=== PATIENT | female | born 1945 | race Caucasian/White ===

== ENCOUNTER 2017-04-26 07:14 | Emergency (ER) | payer OTHER ==
[~2017-04-26] VITALS: Ht 165.1 cm; Wt 98.1 kg
[~2017-04-26 07:14] MED LIST: ADVAIR 250/501 DISK IH; AMLODIPINE BESYL5 MG PO; AMOX TR-K CLV1 EAC3 PO; ANTIFUNGAL15 G1 TP; AZTREONAM1 GM IM; BACTRIM,SEPT1 TABLET PO; BACTRIM,SEPTRA20 ML PO; BUDEPRION XL300 MG PO; BUPROPION XL300 MG PO; BUSPAR15 MG PO; BUSPIRONE HCL15 MG PO; Buspar PO; CARDIZEM CD180 MG PO; CAYSTON75 MG/1 ML IH; CLONAZEPAM0.5 MG PO; CLONAZEPAM2 MG PO; COMBIVENT200 INHALA IH; CYANOCOBALAM1000 MCG PO; DIFLUCAN200 MG PO; DILTIAZEM 24HR180 MG PO; DUONEB 2.5-0.5 M3 ML AEROSOL; DUONEB 2.5-0.5 M3 ML IH; FLONASE16 G1 BOTH NARES; HYDROCHLOROTH12.5 M3 PO; HYPER-SAL4 M1 IH; HYPERSAL; HYZAAR 50-121 TABLET PO; Hyzaar 50-12.5 PO; INSULIN PUMP SCCONT; KlonoPIN PO; LEVOFLOXACIN750 MG PO; LISINOPRIL-HCT1 EAC3 PO; LISINOPRIL-HCT1 EACH PO; LISINOPRIL30 MG PO; LYRICA75 MG PO; MIRALAX17 GM PO; MIRALAX255 GM PO; MONTELUKAST SOD10 MG PO; NOVOLOG; NOVOLOG 10100 UNITS/ SC; NOVOLOG PE100 UNITS/ SC; OMEPRAZOLE40 M1 PO; PAROXETINE HCL40 MG; PAXIL40 MG PO; PREDNISONE10 MG PO; PREDNISONE5 M2 PO; PREDNISONE5 MG PO; PREVACID30 MG PO; PROBIOTIC1 EAC1 PO; PULMOZYME2.5 MG/2.5 IH; Paxil PO; PriLOSEC PO; ROBITUSSIN AC,T10 ML PO; SALINE IH; SINGULAIR10 MG PO; SODIUM CHLORIDE4 ML IH; STOOL SOFTENER100 M1 PO; Singulair PO; TESSALON PERLE100 MG PO; VANCOMYCIN HCL1 GM IV; VEST; VITAMIN D31000 UNI2 PO; ZOFRAN8 MG PO; [UNRECOGNIZED DRUG - REMARK] BOTH NARES; predniSONE PO
[2017-04-26] MEDS ORDERED: NAPROXEN500 MG PO (11:49)
[2017-04-26 12:02] VITALS: BP 140/74
== END 2017-04-26 12:03 | disposition home or self-care (01) ==
LOC: EME 07:14
DX: S70.02XA Contusion of left hip, initial encounter (principal); S80.02XA Contusion of left knee, initial encounter; S80.212A Abrasion, left knee, initial encounter; W01.0XXA Fall on same level from slipping, tripping and stumbling without subsequent striking against object, initial encounter; I10 Essential (primary) hypertension; J44.9 Chronic obstructive pulmonary disease, unspecified; J45.909 Unspecified asthma, uncomplicated; E11.9 Type 2 diabetes mellitus without complications; Z79.4 Long term (current) use of insulin
CPT/HCPCS: 73502; 73564; 99281; 99284; J1885

== ENCOUNTER → 2017-08-07 | Outpatient (CLI) | payer OTHER ==
[~2017-08-07] MED LIST changes: +MELATONIN5 M1 PO; +NAPROXEN500 MG PO
== END | disposition home or self-care (01) ==
LOC: AMB 13:30
PROC: 02PYX3Z Removal of Infusion Device from Great Vessel, External Approach (ICD-10-PCS; principal; 2017-08-07)
DX: Z45.2 Encounter for adjustment and management of vascular access device (principal); I87.8 Other specified disorders of veins
CPT/HCPCS: 99212

== ENCOUNTER 2018-01-21 19:25 | Inpatient (IN) | payer OTHER ==
[~2018-01-21] VITALS: Ht 165.1 cm; Wt 100.0 kg
[~2018-01-21 19:25] MED LIST changes: +MELATONIN1 MG PO; -MELATONIN5 M1 PO
[2018-01-21 19:55] LABS: HEMATOCRIT 34.9 % (36.0-46.0); HEMOGLOBIN 11.1 G/DL (11.9-15.5); MCH 25.8 PG (29.0-34.0); MCHC 31.8 G/DL (30.0-36.0); MCV 81.2 FL (83-99); PLATELET COUNT 181 K/uL (156-360); RBC DIS.WIDTH-CV 14.8 % (11.8-14.6); RBC DIS.WIDTH-SD 43.8 % (39-53); WHITE BLOOD COUNT 9.3 K/uL (4.1-10.2)
[2018-01-21 20:11] LABS: ALBUMIN 3.5 g/dL (3.2-4.8)
[2018-01-21 20:12] LABS: CHLORIDE 107 mEq/L (99-109); POTASSIUM 3.9 mEq/L (3.7-5.4); SODIUM 143 mEq/L (136-147)
[2018-01-21 20:14] LABS: GLUCOSE 96 mg/dL (70-99); TOTAL PROTEIN 6.2 g/dL (6.4-8.3)
[2018-01-21 20:16] LABS: TOTAL BILIRUBIN 0.2 mg/dL (0.0-1.0)
[2018-01-21 20:17] LABS: ALKALINE PHOSPHATASE 87 IU/L (3-129)
[2018-01-21 20:18] LABS: CREATININE 1.5 mg/dL (0.6-1.3); GFR ESTIMATE (CALCULATED) 36 mL/min/
[2018-01-21 20:19] LABS: AST (GOT) 12 IU/L (2-34); UREA NITROGEN (BUN) 32 mg/dL (9-23)
[2018-01-21 20:20] LABS: ALT (GPT) 17 IU/L (3-49)
[2018-01-21 20:54] LABS: DIRECT BILIRUBIN 0.1 mg/dL (0.0-0.3); LIPASE 48 U/L (1.0-51.0)
[2018-01-21 21:36] LABS: APPEARANCE CLEAR ((CLEAR)); BILIRUBIN NEGATIVE; BLOOD NEGATIVE; COLOR YELLOW ((YELLOW)); GLUCOSE (STRIP) NEGATIVE; KETONES NEGATIVE; LEUKOCYTES NEGATIVE; NITRITE NEGATIVE; PROTEIN (STRIP) NEGATIVE; SPECIFIC GRAVITY 1.015 (1.000-1.030); UCUL ADDED? NO; UROBILINOGEN 0.2 MG/DL (0.2-1.0)
[2018-01-21 21:40] LABS: TROP-I INTERPRETATION NEGATIVE; TROPONIN-I 0.02 ng/mL (0.0-0.30)
[2018-01-22] MEDS ORDERED: PREDNISONE10 MG PO (01:50)
[2018-01-22] MEDS ORDERED: CYANOCOBALAM1000 MCG PO (01:55)
[2018-01-22] MEDS ORDERED: SODIUM CHLORIDE4 ML IH (01:57)
[2018-01-22] MEDS ORDERED: MONTELUKAST SOD10 MG PO (01:58)
[2018-01-22] MEDS ORDERED: CAYSTON75 MG/1 ML IH (01:59)
[2018-01-22] MEDS ORDERED: HYDROCHLOROTH12.5 M3 PO (02:00)
[2018-01-22] MEDS ORDERED: BUSPAR15 MG PO (02:00)
[2018-01-22] MEDS ORDERED: COMBIVENT RESPIM4 GM IH (02:02)
[2018-01-22] MEDS ORDERED: MYCOSTATIN 100,60 ML PO (02:03)
[2018-01-22 04:16] VITALS: BP 131/79
[2018-01-22 06:08] LABS: TROP-I INTERPRETATION NEGATIVE; TROPONIN-I 0.01 ng/mL (0.0-0.30)
[2018-01-22 08:24] VITALS: BP 146/67
[2018-01-22 11:38] VITALS: BP 141/61
[2018-01-22 13:07] LABS: TROP-I INTERPRETATION NEGATIVE; TROPONIN-I 0.02 ng/mL (0.0-0.30)
[2018-01-22 15:23] VITALS: BP 168/80
[2018-01-22 21:00] VITALS: BP 180/81
[2018-01-22 23:26] VITALS: BP 163/74
[2018-01-23 03:49] VITALS: BP 145/65
[2018-01-23 05:37] LABS: BASOPHIL (%) 0.5 % (0-1); EOSINOPHIL (%) 2.3 % (0-5); EOSINOPHIL COUNT 0.2 K/uL (0-0.3); HEMATOCRIT 33.7 % (36.0-46.0); HEMOGLOBIN 10.1 G/DL (11.9-15.5); IMMATURE GRANULOCYTE (%) 0.7 % (0.0-0.7); LYMPHOCYTE (%) 26.5 % (15-42); MCH 24.9 PG (29.0-34.0); MONOCYTE (%) 9.5 % (3-12); MONOCYTE COUNT 0.7 K/uL (0-0.8); NEUTROPHIL (%) 60.5 % (45-76); NEUTROPHIL COUNT 4.6 K/uL (1.8-6.4); PLATELET COUNT 167 K/uL (156-360); RBC DIS.WIDTH-CV 14.8 % (11.8-14.6); RBC DIS.WIDTH-SD 44.8 % (39-53); RED BLOOD COUNT 4.06 M/uL (3.80-5.20); WHITE BLOOD COUNT 7.6 K/uL (4.1-10.2)
[2018-01-23 06:01] LABS: ALBUMIN 3.3 G/DL (3.2-4.8); ALKALINE PHOSPHATASE 61 IU/L (3-129); ALT (GPT) 15 IU/L (3-49); AST (GOT) 15 IU/L (2-34); CHLORIDE 103 MEQ/L (99-109); CREATININE 1.5 MG/DL (0.6-1.3); GFR ESTIMATE (CALCULATED) 36 mL/min/; GLUCOSE 97 mg/dL (70-99); POTASSIUM 3.6 MEQ/L (3.7-5.4); SODIUM 138 MEQ/L (136-147); TOTAL BILIRUBIN 0.3 MG/DL (0.0-1.0); TOTAL PROTEIN 5.4 G/DL (6.4-8.3); UREA NITROGEN (BUN) 27 mg/dL (9-23)
[2018-01-23 07:05] VITALS: BP 140/64
[2018-01-23 10:50] VITALS: BP 126/60
[2018-01-23 21:00] VITALS: BP 137/66
[2018-01-24 00:04] VITALS: BP 131/60
[2018-01-24 05:04] VITALS: BP 147/65
[2018-01-24 07:33] VITALS: BP 143/67
[2018-01-24 10:47] VITALS: BP 143/66
[2018-01-24 15:55] VITALS: BP 147/70
[2018-01-24 19:00] VITALS: BP 128/70
[2018-01-25 00:04] VITALS: BP 130/59
[2018-01-25 03:53] VITALS: BP 174/74
[2018-01-25 04:02] VITALS: BP 155/70
[2018-01-25 10:10] VITALS: BP 119/58
[2018-01-25 11:22] VITALS: BP 141/64
[2018-01-25 15:24] VITALS: BP 127/60
== END 2018-01-25 16:45 | disposition home or self-care (01) | DRG 191 ==
LOC: EME → EDBD 19:25 → EME 19:25 → EDOF 01-22 02:09 → 5WEST 01-22 02:09 → ENRESERV 01-22 02:10 → 5WEST 01-22 04:07 → ENPENDDIS 01-25 → 5WEST 01-25 16:45
PROVIDERS: Hospitalist; Internal Medicine
DX: J47.9 Bronchiectasis, uncomplicated (principal); E84.9 Cystic fibrosis, unspecified; K59.00 Constipation, unspecified; J98.11 Atelectasis; E10.22 Type 1 diabetes mellitus with diabetic chronic kidney disease; T17.990A Other foreign object in respiratory tract, part unspecified in causing asphyxiation, initial encounter; K86.1 Other chronic pancreatitis; I12.9 Hypertensive chronic kidney disease with stage 1 through stage 4 chronic kidney disease, or unspecified chronic kidney disease; K56.7 Ileus, unspecified; F32.9 Major depressive disorder, single episode, unspecified; Z68.36 Body mass index [BMI] 36.0-36.9, adult; K21.9 Gastro-esophageal reflux disease without esophagitis; E78.5 Hyperlipidemia, unspecified; I70.0 Atherosclerosis of aorta; I25.10 Atherosclerotic heart disease of native coronary artery without angina pectoris; G47.33 Obstructive sleep apnea (adult) (pediatric); N18.3 Chronic kidney disease, stage 3 (moderate); F41.9 Anxiety disorder, unspecified; E66.9 Obesity, unspecified; Z96.41 Presence of insulin pump (external) (internal); Z93.3 Colostomy status; Z79.4 Long term (current) use of insulin; Z90.710 Acquired absence of both cervix and uterus; Z79.899 Other long term (current) drug therapy
CPT/HCPCS: 71275; 74018; 74177; 80048; 80053; 81003; 82248; 82948; 83605; 83690; 84484; 85025; 85027; 93005; 94640 76; 94668; 94760; 94799; 99202; 99281; 99285; G0378; J1644; J2405; J3010; J7030; J7512; J7639; S0028

== ENCOUNTER 2018-01-31 17:23 | Emergency (ER) | payer OTHER ==
[~2018-01-31] VITALS: Ht 165.1 cm; Wt 95.9 kg
[~2018-01-31 17:23] MED LIST changes: +COMBIVENT RESPIM4 GM IH; +MYCOSTATIN 100,60 ML PO
[2018-01-31 19:31] LABS: HEMATOCRIT 35.2 % (36.0-46.0); HEMOGLOBIN 11.1 G/DL (11.9-15.5); MCH 25.8 PG (29.0-34.0); MCHC 31.5 G/DL (30.0-36.0); MCV 81.9 FL (83-99); PLATELET COUNT 170 K/uL (156-360); RBC DIS.WIDTH-CV 14.8 % (11.8-14.6); RBC DIS.WIDTH-SD 44.2 % (39-53); WHITE BLOOD COUNT 11.2 K/uL (4.1-10.2)
[2018-01-31 19:39] LABS: ALBUMIN 3.5 g/dL (3.2-4.8)
[2018-01-31 19:40] LABS: CHLORIDE 107 mEq/L (99-109); POTASSIUM 4.3 mEq/L (3.7-5.4); SODIUM 143 mEq/L (136-147)
[2018-01-31 19:42] LABS: GLUCOSE 168 mg/dL (70-99); TOTAL PROTEIN 6.5 g/dL (6.4-8.3)
[2018-01-31 19:44] LABS: TOTAL BILIRUBIN 0.3 mg/dL (0.0-1.0)
[2018-01-31 19:45] LABS: ALKALINE PHOSPHATASE 87 IU/L (3-129)
[2018-01-31 19:46] LABS: CREATININE 1.6 mg/dL (0.6-1.3); GFR ESTIMATE (CALCULATED) 34 mL/min/
[2018-01-31 19:47] LABS: AST (GOT) 22 IU/L (2-34); UREA NITROGEN (BUN) 28 mg/dL (9-23)
[2018-01-31 19:49] LABS: ALT (GPT) 19 IU/L (3-49); LIPASE 38 U/L (1.0-51.0)
[2018-01-31] MEDS ORDERED: LEVAQUIN500 MG PO (20:37)
[2018-01-31] MEDS ORDERED: ULTRACET1 TABLET PO (20:37)
[2018-01-31] MEDS ORDERED: ZOFRAN ODT4 MG PO (20:48)
[2018-01-31 21:18] VITALS: BP 151/79
== END 2018-01-31 21:20 | disposition home or self-care (01) ==
LOC: EME 17:23
PROVIDERS: Physician Assistant
DX: J18.9 Pneumonia, unspecified organism (principal); J44.0 Chronic obstructive pulmonary disease with (acute) lower respiratory infection; E11.9 Type 2 diabetes mellitus without complications; Z79.4 Long term (current) use of insulin; Z96.41 Presence of insulin pump (external) (internal); E78.5 Hyperlipidemia, unspecified; E84.9 Cystic fibrosis, unspecified; F32.9 Major depressive disorder, single episode, unspecified; F41.9 Anxiety disorder, unspecified; G47.30 Sleep apnea, unspecified; I10 Essential (primary) hypertension; K21.9 Gastro-esophageal reflux disease without esophagitis; Z90.49 Acquired absence of other specified parts of digestive tract; Z90.710 Acquired absence of both cervix and uterus; Z93.3 Colostomy status; Z88.2 Allergy status to sulfonamides; Z88.1 Allergy status to other antibiotic agents; Z88.8 Allergy status to other drugs, medicaments and biological substances
CPT/HCPCS: 71046; 74176; 80053; 81003; 83690; 85027; 93005; 99281; 99284; J2405; J3010; J7030

== ENCOUNTER → 2018-02-19 | Outpatient (CLI) | payer OTHER ==
[~2018-02-19] MED LIST changes: +LEVAQUIN500 MG PO; +ULTRACET1 TABLET PO; +ZOFRAN ODT4 MG PO
== END | disposition home or self-care (01) ==
LOC: AMB 10:19
DX: Z45.2 Encounter for adjustment and management of vascular access device (principal); I87.8 Other specified disorders of veins; E84.9 Cystic fibrosis, unspecified